=== PATIENT | male | born 1965 | race Caucasian/White ===

== ENCOUNTER 2017-05-06 12:46 | Emergency (ER) | payer OTHER ==
[~2017-05-06] VITALS: Ht 170.2 cm; Wt 68.1 kg
[~2017-05-06 12:46] MED LIST: HYDR-971 PO
[2017-05-06 12:55] VITALS: BP 140/75
--- NOTE | 2017-05-06 13:38 | RAD ---
Examination: 3 views of the right elbow History: History of right elbow pain for one day, fall Comparison: None available. Findings: The alignment of the elbow joint grossly appears unremarkable. There is no obvious acute fracture identified. Impression: No acute osseous findings. If pain persists follow-up radiograph in 5-7 days is recommended.
[2017-05-06] MEDS ORDERED: HYDROcodone/APAP 5/325MG 1 TAB TABLET PO ONE (13:40)
[2017-05-06] MEDS ORDERED: HYDR-971 PO (14:18)
--- NOTE | 2017-05-06 14:18 | PHYS DOC ---
Past History Past Medical History: No Pertinent History Past Surgical History: No Surgical History Alcohol Use: None Drug Use: None Adult General Chief Complaint Chief Complaint: ELBOW PROBLEM HPI HPI Patient is a 52 year old male who presents with right upper extremity injury. The patient states just prior to arrival he tripped over a curb, fell to the ground with impact to right elbow. States pain radiates from elbow to shoulder. Denies other injuries including head trauma or loss of consciousness. Complains of severe elbow pain, unable to perform range of motion or remove shirt. This is dominant right hand. No meds taken prior to arrival. No previous elbow surgery or injury. Review of Systems Review of Systems Constitutional: Denies fever or chills HENT: Denies nasal congestion or sore throat Respiratory: Denies cough or shortness of breath Cardiovascular: Denies chest pain GI: Denies abdominal pain, nausea, vomiting Musculoskeletal: Reports elbow pain Integument: Denies rash Neurologic: Denies headache Current Medications Current Medications Current Medications Medications (Trade) Dose Ordered Sig/Eloisa Start Time Stop Time Status Last Admin Dose Admin Acetaminophen/ Hydrocodone Bitart (Lortab 5/325) 2 tab 1X ONCE 05/06/17 13:40 05/06/17 13:41 DC 05/06/17 13:28 2 TAB Allergies Allergies Allergies Coded Allergies Type Severity Reaction Last Updated Verified No Known Drug Allergies 06/18/16 No Physical Exam Physical Exam Constitutional: Well developed, well nourished, no acute distress, non-toxic appearance. HENT: Normocephalic, atraumatic, bilateral external ears normal, oropharynx moist, nose normal. Eyes: conjunctiva normal, no discharge. Cardiovascular: no edema. Lungs & Thorax: no respiratory distress. Abdomen: nondistended. Skin: Warm, dry, no erythema, no rash. Extremities: after shirt removed, right upper extremity demonstrates pain with palpation over the olecranon but also has obvious deformity of the bicep which is diffusely tender, no focal shoulder tenderness, painful ROM to shoulder & elbow, refuses any active ROM at either joint, radial pulse 2+, radial/median/ ulnar nerve sensory & motor function intact. Neurologic: Alert and oriented X 3, no focal deficits noted. Psychologic: Affect normal, judgement normal, mood normal. Current Patient Data Vital Signs Vital Signs Date Time Temp Pulse Resp B/P (MAP) Pulse Ox O2 Delivery O2 Flow Rate FiO2 05/06/17 13:28 20 97 Room Air 05/06/17 12:55 97.9 75 EKG EKG [] Radiology/Procedures Radiology/Procedures PROCEDURE: ELBOW RIGHT 3V Examination: 3 views of the right elbow History: History of right elbow pain for one day, fall Comparison: None available. Findings: The alignment of the elbow joint grossly appears unremarkable. There is no obvious acute fracture identified. Impression: No acute osseous findings. If pain persists follow-up radiograph in 5-7 days is recommended. DICTATED AND SIGNED BY: EZIO BEAULIEU MD DATE: 05/06/17 3153 [] Course & Med Decision Making Course & Med Decision Making Pertinent Labs and Imaging studies reviewed. (See chart for details) The patient presents with right elbow injury, although exam demonstrates biceps tendon rupture. Initially he could not remove shirt for exam so elbow x-ray was obtained & his shirt was cut. On exam with exposed extremity, there is obvious biceps tear. Ordered initial x-ray of the shoulder which the patient refused. Recommend rest, sling for comfort, ibuprofen for pain, norco for breakthrough pain, apply ice or heat. Follow up with Dr. Rico in [facility] in about 1 week. Come back for neurovascular compromise or otherwise worsening condition. Discharged home in stable condition. [] Dragon Disclaimer Dragon Disclaimer This chart was dictated in whole or in part using Voice Recognition software in a busy, high-work load, and often noisy Emergency Department environment. It may contain unintended and wholly unrecognized errors or omissions. Departure Departure: Impression: Primary Impression: Biceps tendon rupture Disposition: 01 HOME, SELF-CARE Condition: STABLE Referrals: PEGGY REYES MD (PCP) [facility] Patient Instructions: Biceps Tendon Disruption (Distal) with Rehab-SportsMed Additional Instructions: You were seen in the emergency department today for biceps tendon injury. Please rest, wear sling for comfort, do gentle range of motion exercises, apply ice or heat, take ibuprofen three times daily, use norco for severe pain - no drinking alcohol or driving while taking this medication. Come back for numbness or weakness in your hand, or any otherwise worsening condition. Scripts Hydrocodone Bit/Acetaminophen (NORCO 5-325 TABLET) 1 Each Tablet 1-2 TAB PO Q4-6HRS Y for SEVERE PAIN, #10 TAB Prov: LEI CHOU MD 05/06/17 LEI CHOU MD May 06, 2017 14:18
== END 2017-05-06 14:49 | disposition home or self-care (01) ==
LOC: ER 12:46
DX: S46.211A Strain of muscle, fascia and tendon of other parts of biceps, right arm, initial encounter (principal); W01.0XXA Fall on same level from slipping, tripping and stumbling without subsequent striking against object, initial encounter; Y93.89 Activity, other specified; Y99.8 Other external cause status; Y92.89 Other specified places as the place of occurrence of the external cause
CPT/HCPCS: 73080; 99284